=== PATIENT | female | born 1990 | race Caucasian/White ===

== ENCOUNTER 2017-10-04 10:26 | Day surgery (SDC) | payer SELFPAY, OTHER ==
[~2017-10-04 10:26] MED LIST: Acetaminophen/HYDROcodone 325-5 MG Tab PO PRN; Bupivacaine 0.25%/EPINEPHrine 1:200,000 10 ML SDV INJECT ONE; Lactated Ringers 1,000 ML IV SCH
[2017-10-04] MEDS ORDERED: Clindamycin Phosphate in D5W 600 MG in Premix Bag 1 BAG IV ONE ×2 (12:00)
--- NOTE | 2017-10-04 12:08 | PCM.PREANE ---
Preanesthetic Assessment - Anesthesia/Transfusion/Family Hx Anesthesia History: Prior Anesthesia Without Reaction Other Type of Anesthesia Reaction Comment: "I have a tendency to get nauseated" Family History of Anesthesia Reaction: No Transfusion History: No Prior Transfusion(s) Intubation History: Unknown - Review of Systems General: No Symptoms Pulmonary: No Symptoms Cardiovascular: No Symptoms Gastrointestinal: No Symptoms Neurological: No Symptoms Other: Reports: None - Physical Assessment NPO Status Date: 10/03/17 NPO Status Time: 23:00 O2 Sat by Pulse Oximetry: 98 Respiratory Rate: 16 Vital Signs: Last Vital Signs Temp 36.2 C 10/04/17 10:50 Pulse 74 10/04/17 10:50 Resp 16 10/04/17 10:50 BP 114/74 10/04/17 10:50 Pulse Ox 98 10/04/17 10:50 Height: 1.57 m Weight: 61.235 kg ASA Class: 2 Mental Status: Alert & Oriented x3 Airway Class: Mallampati = 2 Dentition: Reports: Normal Dentition Thyro-Mental Finger Breadths: 3 Mouth Opening Finger Breadths: 3 ROM/Head Extension: Full Lungs: Clear to Auscultation, Normal Respiratory Effort Cardiovascular: Regular Rate, Regular Rhythm - Lab Values: Laboratory Last Values Urine HCG, Qual NEGATIVE (NEGATIVE) 10/04/17 10:35 - Allergies Allergies/Adverse Reactions: Allergies Allergy/AdvReac Type Severity Reaction Status Date / Time cefaclor [From Ceclor] Allergy Cannot Verified 10/01/17 13:18 Remember Penicillins Allergy Cannot Verified 10/01/17 13:18 Remember Sulfa (Sulfonamide Allergy Cannot Verified 10/01/17 13:18 Antibiotics) Remember - Blood Blood Available: No - Anesthesia Plan Pre-Op Medication Ordered: None - Acknowledgements Anesthesia Type Planned: General Anesthesia Pt an Appropriate Candidate for the Planned Anesthesia: Yes Alternatives and Risks of Anesthesia Discussed w Pt/Guardian: Yes Pt/Guardian Understands and Agrees with Anesthesia Plan: Yes PreAnesthesia Questionnaire HEENT History: Reports: Other (See Below) Other HEENT History: wears glasses Gastrointestinal History: Reports: None Psychiatric History: Reports: Anxiety, Depression - Past Surgical History Head Surgeries/Procedures: Reports: None HEENT Surgical History: Reports: Adenoidectomy, Tonsillectomy GI Surgical History: Reports: Appendectomy - SUBSTANCE USE Smoking Status *Q: Former Smoker (smoked for 10 years, quit 2 years ago) Tobacco Use Within Last Twelve Months: Cigarettes Days Per Week of Alcohol Use: 1 Recreational Drug Use History: No - HOME MEDS Home Medications: Home Meds Levonorgestrel [Mirena] 1 device VAG ASDIRECTED 10/01/17 [History] - CURRENT (IN HOUSE) MEDS Current Meds: Current Medications Hydrocodone Bitart/Acetaminophen ([place] 325-5 Mg) 1 tab PO Q4H PRN PRN Reason: Pain Lactated Ringer's (Ringers, Lactated) 1,000 mls @ 125 mls/hr IV ASDIRECTED [facility] Last Admin: 10/04/17 10:51 Dose: 125 mls/hr Clindamycin Phosphate 600 mg/ (Premix) 50 mls @ 100 mls/hr IV ONETIME ONE Stop: 10/04/17 12:29 Discontinued Medications Bupivacaine HCl/Epinephrine Bitart (Marcaine 0.25%/Epinephrine 1:200,000) 30 ml INJECT ONETIME ONE Stop: 10/04/17 09:01
[2017-10-04] MEDS ORDERED: Propofol 200 MG/20 ML SDV ONE (12:22)
[2017-10-04] MEDS ORDERED: Succinylcholine/Normal Saline 200 MG/10 ML Syringe ONE (12:22)
[2017-10-04] MEDS ORDERED: Rocuronium 10 MG/ML 10 ML Syringe ONE (12:22)
[2017-10-04] MEDS ORDERED: Lidocaine 2% 5 ML SDV ONE (12:22)
[2017-10-04] MEDS ORDERED: Midazolam 1 MG/ML 2 ML SDV ONE (12:23)
[2017-10-04] MEDS ORDERED: fentaNYL 100 MCG/2 ML SDV ONE (12:23)
[2017-10-04] MEDS ORDERED: EPINEPHrine 1 MG/ML SDV ONE (13:10)
[2017-10-04] MEDS ORDERED: ceFAZolin 1 GM Vial ONE (13:10)
[2017-10-04] MEDS ORDERED: Bupivacaine 25%/EPINEPHrine/PF 30 ML ONE (13:10)
[2017-10-04] MEDS ORDERED: Gentamicin 40 MG/ML 2 ML Vial ONE (13:10)
[2017-10-04] MEDS ORDERED: Dexamethasone 4 MG/ML 5 ML MDV ONE (13:25)
[2017-10-04] MEDS ORDERED: HYDROmorphone 2 MG/ML Syringe ONE (13:36)
[2017-10-04] MEDS ORDERED: ePHEDrine 50 MG/ML SDV ONE (13:45)
[2017-10-04] MEDS ORDERED: fentaNYL 100 MCG/2 ML SDV IVPUSH PRN (13:52)
[2017-10-04] MEDS ORDERED: Ondansetron 4 MG/2 ML SDV ONE (14:16)
[2017-10-04] MEDS ORDERED: Ketorolac 30 MG/ML SDV ONE (14:16)
--- NOTE | 2017-10-04 15:28 | PCM.POSTAN ---
POST ANESTHESIA ASSESSMENT - MENTAL STATUS Mental Status: Alert, Oriented - RESPIRATORY Respiratory Status: Respiratory Rate WNL, Airway Patent, O2 Saturation Stable - CARDIOVASCULAR CV Status: Pulse Rate WNL, Blood Pressure Stable - GASTROINTESTINAL GI Status: No Symptoms - POST OP HYDRATION Hydration Status: Adequate & Stable
--- NOTE | 2017-10-09 09:49 | OR ---
SURGEON: DAY ZAMORA MD DATE OF PROCEDURE: 10/04/2017 PREOPERATIVE DIAGNOSIS: Desire for cosmetic breast augmentation. POSTOPERATIVE DIAGNOSIS: Desire for cosmetic breast augmentation. PROCEDURE: Bilateral silicone submuscular breast augmentation. IMPLANTS: On the left side reference number [id number], serial number [id number]. On the right side is reference number [id number] and serial number [id number]. ETL PROGRAMMER: ERVIN Bowen. Reason for dental front office assistant is retraction, prepping, draping, and positioning of the patient. INDICATIONS: Ms. Hernandez is a 27-year-old female seen today in evaluation for bilateral breast augmentation. Risks and benefits of augmentation were discussed with her and she was in agreement to proceed. Risks were including, but not limited to, bleeding, infection, damage to underlying or overlying structures, possible need for future interventions, and possible scarring. PROCEDURE IN DETAIL: After informed consent was obtained and placed on the chart, the patient was brought to the operating theater and laid in the supine position. After adequate general anesthetic was obtained, the area was prepped and draped and a time-out was completed to confirm side and site. After adequate prepping and draping and a time-out was completed, the base width of the breast for the size of the implants needed was marked for the incision to be 6 cm inferior to the nipple-areolar complex. The right side was planned for slightly larger implant due to a prominent rib down the left. Once adequately prepped and draped, a 15 blade was used to dissect through the marked incision line in the inframammary fold and dissection was carried through the subcutaneous tissues using Bovie electrocautery until reaching the lateral aspect of the muscle. The muscle was elevated and then transected at its inferior border. Once adequately transected, everything was hemostased and mirror dissection was completed on the other side while epinephrine laps were placed in the pocket and allowed to sit. Once bilaterally adequately dissected and meticulous hemostasis was obtained, a 3-0 PDS suture was used to secure the inframammary fold in the lateral border of the breast pocket. Once this was completed, they were again irrigated copiously and irrigated with triple antibiotic solution minus Ancef due to her allergy. Once adequately irrigated, attention was paid to the standard prepping of the implant with the antibiotic solution and use of the Fernández funnel for placement. Once adequately and appropriately positioned in the breast using the Fernández funnel, the wounds inferiorly were reapproximated using deep 3-0 Monocryl stitches for the fascia, deep 3-0 Monocryl stitches for the dermis, and a running 4-0 subcuticular for the skin. The wounds were dressed with Steri- Strips, fluffs, and tape. The patient tolerated the procedure well. All counts and needles were correct at the end of the case. The patient was then placed in a Specialty compression bra garment and will see us in clinic next week sooner if any problems, questions, or concerns. HEGGTHE / VASYLL /[id number]
== END 2017-10-04 16:33 | disposition home or self-care (01) ==
LOC: MW.SDS 10:26
PROVIDERS: ATTEND Plastic Surgery
DX: Z41.1 Encounter for cosmetic surgery (principal); F41.9 Anxiety disorder, unspecified; F32.9 Major depressive disorder, single episode, unspecified; Z87.891 Personal history of nicotine dependence; Z88.0 Allergy status to penicillin; Z88.1 Allergy status to other antibiotic agents; Z88.2 Allergy status to sulfonamides; Z97.5 Presence of (intrauterine) contraceptive device; Z90.89 Acquired absence of other organs; Z90.49 Acquired absence of other specified parts of digestive tract
CPT/HCPCS: 19325; 81025; J0171; J1100; J1170; J1580; J1885; J2250; J2405; J3010; J7120; 00402; C1789; J0690; J2704

== ENCOUNTER 2024-09-09 06:54 | Day surgery (SDC) | payer BC ==
[~2024-09-09 06:54] MED LIST changes: +Acetaminophen 1,000 MG in Premix Bag 1 BAG IV SCH; -Acetaminophen/HYDROcodone 325-5 MG Tab PO PRN; -Bupivacaine 0.25%/EPINEPHrine 1:200,000 10 ML SDV INJECT ONE; -Lactated Ringers 1,000 ML IV SCH; +ceFAZolin 2 GM in Sodium Chloride 0.9% 50 ML IV ONE
[2024-09-09] MEDS ORDERED: Morphine 10 MG/ML SDV ONE (06:59)
[2024-09-09] MEDS ORDERED: Ropivacaine 0.5% 5 MG/ML 30 ML SDV ONE (07:00)
[2024-09-09] MEDS ORDERED: Bupivacaine 0.25% 10 ML SDV ONE (07:00)
[2024-09-09] MEDS: Pregabalin 75 MG Cap PO SCH (07:05)
[2024-09-09] MEDS: Scopalamine 1mg/3day Transdermal Patch TOP ONE (07:05)
[2024-09-09] MEDS ORDERED: Bupivacaine 0.25% 30 ML SDV ONE (07:18)
[2024-09-09] MEDS ORDERED: Rocuronium Bromide 50 MG/5 ML Syringe ONE (07:27)
[2024-09-09] MEDS ORDERED: Lidocaine 1% 5 ML VIAL ONE (07:27)
[2024-09-09] MEDS ORDERED: Ondansetron 4 MG/2 ML SDV ONE (07:27)
[2024-09-09] MEDS ORDERED: Dexamethasone 4 MG/ML 5 ML MDV ONE (07:27)
[2024-09-09] MEDS ORDERED: Propofol 200 MG/20 ML SDV ONE (07:28)
[2024-09-09] MEDS ORDERED: fentaNYL 100 MCG/2 ML SDV ONE (07:30)
[2024-09-09] MEDS ORDERED: propofoL 500 MG/50 ML 50 ML ONE (07:31)
[2024-09-09] MEDS ORDERED: Midazolam 1 MG/ML 2 ML SDV ONE (07:33)
[2024-09-09] MEDS: Lactated Ringers 1,000 ML IV SCH (07:39)
[2024-09-09] MEDS ORDERED: ceFAZolin 1 GM Vial ONE (08:01)
[2024-09-09] MEDS ORDERED: Clindamycin Phosphate in D5W 600 MG in Premix Bag 1 BAG IV ONE (08:19)
[2024-09-09] MEDS ORDERED: Morphine 2 MG/ML SYRINGE IVPUSH PRN (08:42)
[2024-09-09] MEDS ORDERED: Ondansetron 4 MG/2 ML SDV IVPUSH PRN (08:42)
[2024-09-09] MEDS ORDERED: Phenylephrine HCl In 0.9% NaCl 1 MG/10 ML Syringe IVPUSH PRN (08:42)
[2024-09-09] MEDS ORDERED: Albuterol 0.083% 2.5 MG/3 ML Neb Soln NEB PRN (08:42)
[2024-09-09] MEDS ORDERED: fentaNYL 50 MCG/ML SDV IVPUSH PRN (08:42)
[2024-09-09] MEDS ORDERED: Metoclopramide 10 MG/2 ML SDV IVPUSH PRN (08:42)
[2024-09-09] MEDS ORDERED: Naloxone 0.4 MG/ML SDV IVPUSH PRN (08:42)
[2024-09-09] MEDS ORDERED: Sugammadex Sodium 200 MG/2 ML VIAL IV ONE (09:13)
[2024-09-09] MEDS ORDERED: Ketorolac 30 MG/ML SDV ONE (09:13)
[2024-09-09] MEDS: HYDROmorphone 1 MG/ML Syringe IVPUSH PRN (09:53)
== END 2024-09-09 11:38 | disposition home or self-care (01) ==
LOC: MW.SDS 06:54
PROVIDERS: ATTEND Surgery
DX: K80.10 Calculus of gallbladder with chronic cholecystitis without obstruction (principal); K82.8 Other specified diseases of gallbladder; F41.9 Anxiety disorder, unspecified; F32.A Depression, unspecified; Z87.891 Personal history of nicotine dependence; Z79.899 Other long term (current) drug therapy; Z88.0 Allergy status to penicillin; Z88.2 Allergy status to sulfonamides
CPT/HCPCS: 47563; 81025; A9270; J0131; J0665; J0690; J0736; J1100; J1171; J1885; J2250; J2272; J2704; J2795; J3010; J3490; J7120; 00790; 64488; J2405